=== PATIENT | female | born 1965 | race Caucasian/White ===

== ENCOUNTER 2020-02-07 17:24 | Emergency (ER) | payer OTHER ==
[~2020-02-07] VITALS: Ht 157.5 cm; Wt 68.0 kg
[2020-02-07 17:56] VITALS: BP 149/86; Ht 157.5 cm; Wt 68.0 kg
== END 2020-02-07 18:14 | disposition left against medical advice (07) ==
LOC: ED 17:24
DX: M54.5 Low back pain (principal)